=== PATIENT | female | born 2005 | race Caucasian/White ===

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

== ENCOUNTER 2024-01-25 18:41 | Emergency (ER) | payer OTHER ==
[2024-01-25 18:59] VITALS: TEMP 98.6
--- NOTE | 2024-01-25 19:18 | ERPHSYRPT ---
- History of Present Illness Time Seen by Provider: 01/25/24 18:58 Historian: patient Exam Limitations: no limitations Patient Subjective Stated Complaint: Pt states "I have had belly pain for a coupld of days." Triage Nursing Assessment: Pt presented alert and oriented x 3, skin pwd. pt ambulates with an upright steady gait, able to speak in clear full sentences. Pt resting comfortably on the bed. Physician History: 18 years old female presented to the ER with complaint of generalized abdominal pain for the last couple of days, more intensity sharp nature, aggravated with palpation movements and better with lying. Reports associated mild nausea but no vomiting. No constipation or diarrhea reported. Denies any fever or chills. LMP 2 days ago. Denies any urinary complaints. Allergies/Adverse Reactions: amoxicillin Allergy (Severe, Verified 01/25/24 18:59) Swelling Penicillins Adverse Reaction (Intermediate, Verified 04/12/23 21:25) Hives Hx Tetanus, Diphtheria Vaccination/Date Given: No Hx Influenza Vaccination/Date Given: No Hx Pneumococcal Vaccination/Date Given: No Immunizations Up to Date: No Travel Risk - International Travel Have you traveled outside of the country in past 3 weeks: No - Emerging Infectious Disease Are you exhibiting symptoms associated with any current EIDs: Yes Symptoms: Abdominal Pain - Review of Systems Constitutional: No Symptoms Ears, Nose, & Throat: No Symptoms Respiratory: No Symptoms Cardiac: No Symptoms Abdominal/Gastrointestinal: Abdominal Pain, Nausea Genitourinary Symptoms: No Symptoms Musculoskeletal: No Symptoms Skin: No Symptoms Neurological: No Symptoms Endocrine: No Symptoms Hematologic/Lymphatic: No Symptoms - Past Medical History Pertinent Past Medical History: No Neurological History: No Pertinent History ENT History: No Pertinent History Cardiac History: No Pertinent History Respiratory History: No Pertinent History Endocrine Medical History: No Pertinent History Musculoskeletal History: No Pertinent History GI Medical History: No Pertinent History History: No Pertinent History Psycho-Social History: No Pertinent History Female Reproductive Disorders: No Pertinent History - Past Surgical History Past Surgical History: No Neuro Surgical History: No Pertinent History Cardiac: No Pertinent History Respiratory: No Pertinent History Gastrointestinal: No Pertinent History Genitourinary: No Pertinent History Musculoskeletal: No Pertinent History Female Surgical History: No Pertinent History - Female History Hx Last Menstrual Period: 01/23/2024 Hx Now: No - Social History Smoking Status: Current every day smoker How long have you smoked: year Exposure to second hand smoke: Yes Drug Use: none Patient Lives Alone: No - Social Determinants of Health Will the patient participate in the screening: Yes Do you worry about a steady place to live?: No Do you have any problems with any of the following?: No known problems In the past 12 months,have you had to go without utilities?: No Transportation Issues: Yes Has anyone in your support network made you feel unsafe?: No Have you or anyone in your house had to go without enough: No - Nursing Vital Signs Nursing Vital Signs: Initial Vital Signs Temperature 98.6 F 01/25/24 18:49 Pulse Rate 80 01/25/24 18:49 Respiratory Rate 20 01/25/24 18:49 Blood Pressure 112/68 01/25/24 18:49 O2 Sat by Pulse Oximetry 99 01/25/24 18:49 Pain Scale Pain Intensity 4 - Physical Exam General Appearance: no apparent distress Eye Exam: PERRL/EOMI Ears, Nose, Throat Exam: pharynx normal Neck Exam: normal inspection, full range of motion Respiratory Exam: normal breath sounds, lungs clear Cardiovascular Exam: regular rate/rhythm, normal heart sounds Gastrointestinal/Abdomen Exam: soft, normal bowel sounds, tenderness (Mild generalized tenderness with no guarding or rebound tenderness.) Back Exam: normal inspection, normal range of motion, No CVA tenderness Extremity Exam: normal inspection, normal range of motion Neurologic Exam: alert, oriented x 3, 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, 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 Skin Exam: normal color SpO2 Interpretation: normal SpO2: 99 O2 Delivery: Room Air Ordered Tests: Active Orders 24 hr Category Date Time Status IV Insertion STAT Care 01/25/24 19:15 Active NPO (ED) STAT Care 01/25/24 19:15 Active ABDOMEN AND PELVIS W/0 CONTRAS [CT] Stat Exams 01/25/24 19:16 Completed CBC W DIFF Stat Lab 01/25/24 19:10 Completed CMP Stat Lab 01/25/24 19:10 Completed HCG QUALITATIVE, URINE Stat Lab 01/25/24 19:10 Completed LIPASE Stat Lab 01/25/24 19:10 Completed UA W/RFX UR CULTURE Stat Lab 01/25/24 19:10 Completed Medication Summary Discontinued Medications Generic Name Dose Route Start Last Admin Trade Name Freq PRN Reason Stop Dose Admin Sodium Chloride 1,000 mls @ 999 mls/hr 01/25/24 19:15 01/25/24 20:36 Sodium Chloride 0.9% 1000 Ml IV 01/25/24 20:15 Infused .Q1H1M STA Infusion Sodium Chloride Confirm 01/25/24 19:28 Sodium Chloride 0.9% 1000 Ml Administered 01/25/24 19:29 Dose 1,000 mls @ ud .ROUTE .STK-MED ONE Ketorolac Tromethamine 30 mg 01/25/24 19:15 01/25/24 19:33 Ketorolac Tromethamine 30 Mg/Ml Inj IV 01/25/24 19:16 30 mg STAT ONE Administration Ketorolac Tromethamine Confirm 01/25/24 19:28 Ketorolac Tromethamine 30 Mg/Ml Inj Administered 01/25/24 19:29 Dose 30 mg .ROUTE .STK-MED ONE Ondansetron HCl 4 mg 01/25/24 19:15 01/25/24 19:31 Ondansetron Hcl 4 Mg/2 Ml Vial IV 01/25/24 19:16 4 mg STAT ONE Administration Ondansetron HCl Confirm 01/25/24 19:28 Ondansetron Hcl 4 Mg/2 Ml Vial Administered 01/25/24 19:29 Dose 4 mg .ROUTE .STK-MED ONE Lab/Rad Data: Laboratory Result Diagrams 01/25/24 19:10 01/25/24 19:10 Laboratory Results 01/25/24 01/25/24 01/25/24 Range/Units 19:10 19:10 19:10 WBC (4.0-10.5) x10^3/uL RBC (4.1-5.4) x10^6/uL Hgb (12.0-16.0) g/dL Hct (35-47) % MCV (78-100) fL MCH (26-32) pg MCHC (32-36) g/dL RDW (11.5-14.0) % Plt Count (150-450) x10^3/uL MPV (7.5-11.0) fL Gran % (36.0-66.0) % Immature Gran % (Auto) (0.00-0.4) % Nucleat RBC Rel Count (0.00-0.1) % Eos # (Auto) (0-0.5) x10^3/uL Immature Gran # (Auto) (0.00-0.03) x10^3u/L Absolute Lymphs (auto) (1.0-4.6) x10^3/uL Absolute Monos (auto) (0.0-1.3) x10^3/uL Absolute Nucleated RBC (0.00-0.01) x10^3u/L Lymphocytes % (24.0-44.0) % Monocytes % (0.0-12.0) % Eosinophils % (0.00-5.0) % Basophils % (0.0-0.4) % Absolute Granulocytes (1.4-6.9) x10^3/uL Basophils # (0-0.4) x10^3/uL Sodium 140 (135-145) mmol/L Potassium 3.8 (3.5-5.1) mmol/L Chloride 106 (98-107) mmol/L Carbon Dioxide 25 (22-30) mmol/L Anion Gap 12.6 (5-15) MEQ/L BUN 13 (7-17) mg/dL Creatinine 0.81 (0.52-1.04) mg/dL Estimated GFR 107.2 ML/MIN Glucose 103 (74-106) mg/dL Calcium 9.7 (8.4-10.2) mg/dL Total Bilirubin 0.80 (0.2-1.3) mg/dL AST 18 (14-36) U/L ALT 12 (0-35) U/L Alkaline Phosphatase 56 (38-126) U/L Serum Total Protein 8.1 (6.3-8.2) g/dL Albumin 5.0 (3.5-5.0) g/dL Lipase 104 (23-300) U/L Urine Color Yellow (Yellow) Urine Appearance Clear (Clear) Urine pH 6.0 (4.6-8.0) Ur Specific [place] 1.025 (1.005-1.030) Urine Protein Negative (Negative) Urine Glucose (UA) Negative (Negative) mg/dL Urine Ketones Negative (Negative) Urine Blood Small A (Negative) Urine Nitrite Negative (Negative) Urine Bilirubin Negative (Negative) Urine Urobilinogen 1.0 A (0.2) mg/dL Ur Leukocyte Esterase Negative (Negative) U Hyaline Cast (Auto) NONE SEEN (0-2) /LPF Urine Microscopic RBC 6-10 A (0-5) /HPF Urine Microscopic WBC 0-2 (0-5) /HPF Ur Epithelial Cells Rare (None Seen) /HPF Urine Bacteria None Seen (None Seen) /HPF Urine Culture Reflexed NO (NO) Urine HCG, Qual NEGATIVE (NEGATIVE) 01/25/24 Range/Units 19:10 WBC 9.1 (4.0-10.5) x10^3/uL RBC 4.81 (4.1-5.4) x10^6/uL Hgb 14.8 (12.0-16.0) g/dL Hct 42.9 (35-47) % MCV 89.2 (78-100) fL MCH 30.8 (26-32) pg MCHC 34.5 (32-36) g/dL RDW 12.2 (11.5-14.0) % Plt Count 352 (150-450) x10^3/uL MPV 9.4 (7.5-11.0) fL Gran % 65.3 (36.0-66.0) % Immature Gran % (Auto) 0.2 (0.00-0.4) % Nucleat RBC Rel Count 0.0 (0.00-0.1) % Eos # (Auto) 0.03 (0-0.5) x10^3/uL Immature Gran # (Auto) 0.02 (0.00-0.03) x10^3u/L Absolute Lymphs (auto) 2.50 (1.0-4.6) x10^3/uL Absolute Monos (auto) 0.55 (0.0-1.3) x10^3/uL Absolute Nucleated RBC 0.00 (0.00-0.01) x10^3u/L Lymphocytes % 27.5 (24.0-44.0) % Monocytes % 6.0 (0.0-12.0) % Eosinophils % 0.3 (0.00-5.0) % Basophils % 0.7 (0.0-0.4) % Absolute Granulocytes 5.94 (1.4-6.9) x10^3/uL Basophils # 0.06 (0-0.4) x10^3/uL Sodium (135-145) mmol/L Potassium (3.5-5.1) mmol/L Chloride (98-107) mmol/L Carbon Dioxide (22-30) mmol/L Anion Gap (5-15) MEQ/L BUN (7-17) mg/dL Creatinine (0.52-1.04) mg/dL Estimated GFR ML/MIN Glucose (74-106) mg/dL Calcium (8.4-10.2) mg/dL Total Bilirubin (0.2-1.3) mg/dL AST (14-36) U/L ALT (0-35) U/L Alkaline Phosphatase (38-126) U/L Serum Total Protein (6.3-8.2) g/dL Albumin (3.5-5.0) g/dL Lipase (23-300) U/L Urine Color (Yellow) Urine Appearance (Clear) Urine pH (4.6-8.0) Ur Specific [place] (1.005-1.030) Urine Protein (Negative) Urine Glucose (UA) (Negative) mg/dL Urine Ketones (Negative) Urine Blood (Negative) Urine Nitrite (Negative) Urine Bilirubin (Negative) Urine Urobilinogen (0.2) mg/dL Ur Leukocyte Esterase (Negative) U Hyaline Cast (Auto) (0-2) /LPF Urine Microscopic RBC (0-5) /HPF Urine Microscopic WBC (0-5) /HPF Ur Epithelial Cells (None Seen) /HPF Urine Bacteria (None Seen) /HPF Urine Culture Reflexed (NO) Urine HCG, Qual (NEGATIVE) - Progress Progress: improved, re-examined Progress Note: 01/25/24 21:03 18-year-old is evaluated in the ER for abdominal pain. She is given fluids and symptomatic treatment, on reevaluation patient is pain-free. Workup showed normal white count, unremarkable chemistries including lipase and no UTI. CT abdomen pelvis without contrast is negative for any acute abdominal pelvic findings. She has negative Vivar sign. No guarding or rebound tenderness. I do not know the exact cause of her pain but have ruled out all the major emergencies. Recommended taking Tylenol ibuprofen and outpatient follow-up. Discussed signs symptoms of worsening needing return to ER which she seems understanding. Stable for discharge. Counseled pt/family regarding: lab results, diagnosis, need for follow-up, rad results Medical Desision Making - Independent Historian Additional History obtained from: Mother - Diagnostic Testing Diagnostic test were ordered, analyzed, and reviewed by me: Yes Radiological Interpretation: Reviewed by me, Teleradiologist Report - Risk of complications The pt has a mod risk of morbidity or mortality based on: Need for prescription drug management - Departure Departure Disposition: Home Clinical Impression: Generalized abdominal pain Condition: Stable Critical Care Time: No Referrals: LAURA GONZALEZ [Primary Care Provider] - Follow up with PCP 1 day Instructions: Severe Abdominal Pain, Adult (DC) Additional Instructions: Take Tylenol/ibuprofen as needed. Follow-up with your primary care for reevaluation. Return to ER for any worsening abdominal pain/intractable nausea vomiting/diarrhea etc. Prescriptions: Ibuprofen 600 mg PO Q6HPRN PRN 10 Days #20 tablet PRN Reason: Pain
[2024-01-25 19:21] LABS: Absolute Neutrophil Ct (ANC) 5.94 x10^3/uL (1.4-6.9); BASOPHIL % 0.7 % (0.0-0.4); Basophil (Absolute #) 0.06 x10^3/uL (0-0.4); Eosinophil % 0.3 % (0.00-5.0); Eosinophil (Absolute #) 0.03 x10^3/uL (0-0.5); Hematocrit 42.9 % (35-47); Hemoglobin 14.8 g/dL (12.0-16.0); IMMATURE GRAN # 0.02 x10^3u/L (0.00-0.03); IMMATURE GRAN % 0.2 % (0.00-0.4); Lymphocytes % 27.5 % (24.0-44.0); Mean Cell Volume 89.2 fL (78-100); Mean Corpuscular Hemoglobin 30.8 pg (26-32); Mean Corpuscular Hgb Concent. 34.5 g/dL (32-36); Mean Platelet Volume 9.4 fL (7.5-11.0); Monocyte (Absolute #) 0.55 x10^3/uL (0.0-1.3); Neutrophil % 65.3 % (36.0-66.0); Platelet Count 352 x10^3/uL (150-450); Red Blood Count 4.81 x10^6/uL (4.1-5.4); Red Cell Distribution Width 12.2 % (11.5-14.0); White Blood Count 9.1 x10^3/uL (4.0-10.5)
[2024-01-25 19:23] LABS: HCG URINE TEST NEGATIVE (NEGATIVE)
[2024-01-25 19:25] LABS: ANION GAP 12.6 MEQ/L (5-15); BILIRUBIN,TOTAL 0.8 mg/dL (0.2-1.3); Calcium 9.7 mg/dL (8.4-10.2); Creatinine 1 0.81 mg/dL (0.52-1.04); EST GLOMERULAR FILTRATION RATE 107.2 ML/MIN; Potassium 3.8 mmol/L (3.5-5.1); Total Protein 8.1 g/dL (6.3-8.2)
[2024-01-25] MEDS ORDERED: TORAdol 30 mg Injection ONE (19:28)
[2024-01-25] MEDS ORDERED: Zofran 4 MG/2 ML VIAL ONE (19:28)
[2024-01-25] MEDS ORDERED: Sodium Chloride 0.9% 1000 ML 1,000 ML ONE (19:28)
[2024-01-25 19:29] LABS: Bacteria None Seen /HPF (None Seen); Epithelial Cells Rare /HPF (None Seen); Hyaline Casts NONE SEEN /LPF (0-2); WBC 0-2 /HPF (0-5)
[2024-01-25] MEDS: Sodium Chloride 0.9% 1000 ML 1,000 ML IV STA (19:30)
[2024-01-25 19:31] LABS: ADD URINE CULTURE? NO (NO); Appearance Clear (Clear); Bilirubin Negative (Negative); Blood Small (Negative); Glucose, Urine Negative (Negative); Ketones Negative (Negative); Leukocyte Esterase Negative (Negative); Nitrite Negative (Negative); Protein,Urine Dip Negative (Negative); Specific Gravity 1.025 (1.005-1.030)
[2024-01-25] MEDS: Zofran 4 MG/2 ML VIAL IV ONE (19:31)
[2024-01-25] MEDS: TORAdol 30 mg Injection IV ONE (19:33)
--- NOTE | 2024-01-25 20:58 | XRAY ---
CLINICAL HISTORY: GEN ABD PAIN COMPARISON: Prior CT abdomen dated 04/12/2023. TECHNIQUE: CT scan of the abdomen and pelvis was performed without IV contrast, Coronal and sagittal reconstructive images were also obtained. One of the following dose reduction techniques were utilized for this exam: Automated exposure control, adjustment of the mA and/or kV according to patient size, use of iterative reconstruction FINDINGS: Lung bases are unremarkable. The liver is normal in size without focal parenchymal abnormality. The intrahepatic biliary radicals and the bile ducts are normal. The gallbladder is normal. No pericholecystic fluid collection or radio dense calculi in the gall bladder. The spleen, pancreas, adrenal glands are unremarkable. The kidneys are unremarkable. They are normal in size and shape. No calculi or hydronephrosis is seen. The ascending colon, the transverse colon, the descending colon, visualized small bowel loops are unremarkable. There is no evidence of significant enlargement of the mesenteric or retroperitoneal lymph nodes. The osseous structures in the lower rib cage and lumbar spine show no abnormality. Appendix is unremarkable. Pelvis: The urinary bladder is unremarkable. The rectosigmoid colon is unremarkable. The uterus and ovaries are grossly unremarkable. A small right ovarian cyst is seen again measuring 2.9 x 2.2 cm The pelvic vasculature is unremarkable. No evidence of pelvic lymphadenopathy. 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 IMPRESSION: No significant abnormality is noted. Unremarkable CT examination for the abdomen and pelvis. Regression of right-sided ovarian cyst. Electronically Signed by: Jaya Landaverde MD. (01/25/2024 20:54:26 EDT)
[2024-01-25 21:09] VITALS: O2SAT 99
[2024-01-25 21:13] VITALS: BP 110/67; PULSE 83; RESP 15
== END 2024-01-25 21:18 | disposition home or self-care (01) ==
LOC: ED 18:41
DX: R10.84 Generalized abdominal pain (principal); R11.0 Nausea; Z72.0 Tobacco use
CPT/HCPCS: 36000; 36415; 74176; 80053; 81001; 81025; 83690; 85025; 96360; 96374; 96375; 99284; J1885; J2405

== ENCOUNTER 2025-05-12 12:17 | Emergency (ER) | payer OTHER ==
[2025-05-12 12:45] VITALS: PULSE 75; TEMP 98.5; O2SAT 100
[2025-05-12] MEDS ORDERED: Compazine 10 MG/2 ML ONE (13:11)
[2025-05-12] MEDS: Compazine 10 MG/2 ML IV ONE (13:12)
[2025-05-12 13:13] LABS: BASOPHIL % 0.6 % (0.1-1.2); Basophil (Absolute #) 0.05 x10^3/uL (0.01-0.08); Eosinophil (Absolute #) 0 x10^3/uL (0.04-0.36); Hematocrit 42.0 % (34.1-44.9); Hemoglobin 14.5 g/dL (11.2-15.7); IMMATURE GRAN # 0.04 x10^3u/L (0.001-0.031); IMMATURE GRAN % 0.5 % (0.001-0.429); Lymphocyte (Absolute #) 1.89 x10^3/uL (1.18-3.74); Mean Corpuscular Hemoglobin 30.8 pg (25.6-32.2); Mean Corpuscular Hgb Concent. 34.5 g/dL (32.2-35.5); Monocyte (Absolute #) 0.35 x10^3/uL (0.24-0.86); NUCLEATED RBC # 0.00 x10^3u/L (0.00-0.012); NUCLEATED RBC % 0.0 % (0.00-0.2); Platelet Count 333 x10^3/uL (182-369); Red Blood Count 4.71 x10^6/uL (3.93-5.22); White Blood Count 8.8 x10^3/uL (3.98-10.04)
--- NOTE | 2025-05-12 13:15 | ERPHSYRPT ---
- History of Present Illness Patient Subjective Stated Complaint: vomiting, had blurry vision and thought she was getting a migraine Triage Nursing Assessment: Pt was brought to the ER by her sister, vitals wnl, denies pain, skin n/w/d, pulses normal, denies chest pain, no difficulty breathing, only vomited one time, doesn't appear to be in any distress Physician History: Brought to the emergency department by family member, she had the onset of blurred vision( Initially there was a spot in her visual field), She then developed a headache and then developed nausea vomiting, she has been having similar episodes over the last 5 years, they seem to be occurring more frequently, her symptoms were so bad that 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); She denied association with her period, no previous evaluation or work up for headache Timing/Duration: today Quality: aching Head Pain Location: temporal, parietal Severity of Pain-Max: severe Severity of Pain-Current: moderate Recent Head Trauma: frequent headaches Associated Symptoms: nausea/vomiting, visual disturbance Allergies/Adverse Reactions: amoxicillin Allergy (Severe, Verified 05/12/25 12:36) Swelling Penicillins Adverse Reaction (Intermediate, Verified 05/12/25 12:36) Hives Home Medications: No Reportable Medications [No Reported Medications] 05/12/25 [History] Hx Tetanus, Diphtheria Vaccination/Date Given: No Hx Influenza Vaccination/Date Given: No Hx Pneumococcal Vaccination/Date Given: No Travel Risk - International Travel Have you traveled outside of the country in past 3 weeks: No - Emerging Infectious Disease Are you exhibiting symptoms associated with any current EIDs: Yes Symptoms: Abdominal Pain - Past Medical History Pertinent Past Medical History: No Neurological History: No Pertinent History ENT History: No Pertinent History Cardiac History: No Pertinent History Respiratory History: No Pertinent History Endocrine Medical History: No Pertinent History Musculoskeletal History: No Pertinent History GI Medical History: No Pertinent History History: No Pertinent History Psycho-Social History: No Pertinent History Female Reproductive Disorders: No Pertinent History - Past Surgical History Past Surgical History: No Neuro Surgical History: No Pertinent History Cardiac: No Pertinent History Respiratory: No Pertinent History Gastrointestinal: No Pertinent History Genitourinary: No Pertinent History Musculoskeletal: No Pertinent History Female Surgical History: No Pertinent History - Female History Hx Last Menstrual Period: couple weeks ago Hx Now: No - Social History Smoking Status: Current every day smoker How long have you smoked: vape Exposure to second hand smoke: No Drug Use: none - Social Determinants of Health Will the patient participate in the screening: Yes Do you worry about a steady place to live?: No Do you have any problems with any of the following?: No known problems In the past 12 months,have you had to go without utilities?: No Transportation Issues: No Has anyone in your support network made you feel unsafe?: No Have you or anyone in your house had to go w/o enough food: No - Nursing Vital Signs Nursing Vital Signs: Initial Vital Signs Temperature 98.5 F 05/12/25 12:37 Pulse Rate 75 05/12/25 12:37 O2 Sat by Pulse Oximetry 100 05/12/25 12:37 Pain Scale Pain Intensity 2 - Physical Exam General Appearance: no apparent distress, alert Eye Exam: PERRL/EOMI, eyes nml inspection Ears, Nose, Throat Exam: normal ENT inspection, TMs normal, pharynx normal Neck Exam: normal inspection, non-tender, supple, full range of motion Respiratory Exam: normal breath sounds, chest tenderness, lungs clear Cardiovascular Exam: regular rate/rhythm, normal heart sounds Gastrointestinal/Abdominal Exam: soft, normal bowel sounds, tenderness Extremity Exam: normal inspection, normal range of motion, pelvis stable Mental Status Exam: alert, oriented x 3, 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 Exam: normal hearing, normal speech, PERRL Coordination/Gait Exam: normal cerebellar function Motor/Sensory Exam: no motor deficit, no sensory deficit, no pronator drift Skin Exam: normal color, warm, dry SpO2 Interpretation: normal SpO2: 100 Ordered Tests: Active Orders 24 hr Category Date Time Status HEAD WITHOUT CONTRAST [CT] Stat Exams 05/12/25 13:01 Completed CBC W DIFF Stat Lab 05/12/25 13:12 Completed CMP Stat Lab 05/12/25 13:12 Completed Medication Summary Discontinued Medications Generic Name Dose Route Start Last Admin Trade Name Freq PRN Reason Stop Dose Admin Prochlorperazine Edisylate 5 mg 05/12/25 13:01 05/12/25 13:12 Prochlorperazine Edisylate 10 Mg/2 Ml Vial IV 05/12/25 13:02 5 mg STAT ONE Administration Lab/Rad Data: Laboratory Result Diagrams 05/12/25 13:12 05/12/25 13:12 Laboratory Results 05/12/25 05/12/25 Range/Units 13:12 13:12 WBC 8.8 (3.98-10.04) x10^3/uL RBC 4.71 (3.93-5.22) x10^6/uL Hgb 14.5 (11.2-15.7) g/dL Hct 42.0 (34.1-44.9) % MCV 89.2 (79.4-94.8) fL MCH 30.8 (25.6-32.2) pg MCHC 34.5 (32.2-35.5) g/dL RDW 12.6 (11.7-14.4) % Plt Count 333 (182-369) x10^3/uL MPV 9.7 (9.4-12.3) fL Gran % 73.4 H (34.0-71.1) % Immature Gran % (Auto) 0.5 H (0.001-0.429) % Nucleat RBC Rel Count 0.0 (0.00-0.2) % Eos # (Auto) 0 L (0.04-0.36) x10^3/uL Immature Gran # (Auto) 0.04 H (0.001-0.031) x10^3u/L Absolute Lymphs (auto) 1.89 (1.18-3.74) x10^3/uL Absolute Monos (auto) 0.35 (0.24-0.86) x10^3/uL Absolute Nucleated RBC 0.00 (0.00-0.012) x10^3u/L Lymphocytes % 21.5 (19.3-51.7) % Monocytes % 4.0 L (4.7-12.5) % Eosinophils % 0.0 L (0.7-5.8) % Basophils % 0.6 (0.1-1.2) % Absolute Granulocytes 6.48 H (1.56-6.13) x10^3/uL Basophils # 0.05 (0.01-0.08) x10^3/uL Sodium 136 (135-145) mmol/L Potassium 3.4 L (3.5-5.1) mmol/L Chloride 103 (98-107) mmol/L Carbon Dioxide 25 (22-30) mmol/L Anion Gap 11.0 (5-15) MEQ/L BUN 9 (7-17) mg/dL Creatinine 0.71 (0.52-1.04) mg/dL Estimated GFR 124.8 ML/MIN Glucose 94 (74-106) mg/dL Calcium 9.7 (8.4-10.2) mg/dL Total Bilirubin 1.20 (0.2-1.3) mg/dL AST 23 (14-36) U/L ALT 13 (0-35) U/L Alkaline Phosphatase 63 (38-126) U/L Serum Total Protein 8.0 (6.3-8.2) g/dL Albumin 5.0 (3.5-5.0) g/dL - Progress Progress: improved Progress Note: 05/12/25 13:[address] results, recommended follow-up to primary care doctor - Departure Departure Disposition: Home Clinical Impression: Migraine headache with aura Qualifiers: Status migrainosus presence: without status migrainosus Intractability: not intractable Qualified Code(s): G43.109 - Migraine with aura, not intractable, without status migrainosus Condition: Good Critical Care Time: No Referrals: LAURA GONZALEZ [Primary Care Provider, [facility]] - Follow up with PCP 7 days Instructions: Migraine in adults Additional Instructions: Follow-up to primary care doctor next week, if you have severe headache with vomiting return to emergency
[2025-05-12 13:35] LABS: Calcium 9.7 mg/dL (8.4-10.2); Carbon Dioxide 25.0 mmol/L (22-30); Creatinine 1 0.71 mg/dL (0.52-1.04); EST GLOMERULAR FILTRATION RATE 124.8 ML/MIN; Glucose 94.0 mg/dL (74-106); Potassium 3.4 mmol/L (3.5-5.1); SGOT/AST 23.0 U/L (14-36); SGPT/ALT 13.0 U/L (0-35); Total Protein 8.0 g/dL (6.3-8.2)
--- NOTE | 2025-05-12 13:52 | XRAY ---
CLINICAL HISTORY: headache COMPARISON: None. TECHNIQUE: Axial non-contrast CT scan of the brain was performed from the skull base to the high parietal region. One of the following dose reduction techniques was utilized for this exam: automated exposure control, adjustment of the mA and/or kV according to patient size, and use of iterative reconstruction. FINDINGS: Brain Parenchyma: Normal attenuation of the cerebral hemispheres, cerebellum, and brainstem. No evidence of acute infarct, hemorrhage, or mass effect. No abnormal areas of hypoattenuation or hyperattenuation. Ventricular System: The ventricles are normal in size and configuration. No evidence of hydrocephalus or ventricular enlargement. Subarachnoid Spaces: The sulci and cisterns are normal. No evidence of subarachnoid hemorrhage or extra-axial fluid collections. Cerebellum and Brainstem: No masses, lesions, or areas of abnormal density are identified. Orbits: There is a normal appearance of the globes, optic nerves, and extraocular muscles. No evidence of orbital masses or abnormal density. Sinuses: The imaged paranasal sinuses are clear. No evidence of sinusitis or mucosal thickening. Mastoid Air Cells: The mastoid air cells are clear. No evidence of mastoiditis. Skull: Normal skull morphology is noted. IMPRESSION: Normal CT of the head without contrast. No evidence of acute intracranial insult. Electronically Signed by: Froylan Somers MD. (05/12/2025 13:51:45 EDT)
[2025-05-12 14:12] VITALS: BP 102/81
== END 2025-05-12 14:13 | disposition home or self-care (01) ==
LOC: ED 12:17
DX: G43.109 Migraine with aura, not intractable, without status migrainosus (principal); H53.8 Other visual disturbances; R11.2 Nausea with vomiting, unspecified; Z72.0 Tobacco use